=== PATIENT | male | born 1970 | race African-American/Black ===

== ENCOUNTER 2021-11-11 12:32 | Emergency (ER) | payer MEDICAID ==
[~2021-11-11] VITALS: Ht 182.9 cm; Wt 80.0 kg
[2021-11-11] MEDS ORDERED: TETRACAINE 0.5% OPHTH DROPS 4ML LEFTEYE ONE (18:45)
[2021-11-11] MEDS ORDERED: FLUORESCEIN SODIUM 1MG/STRIP LEFTEYE ONE (18:45)
[2021-11-11] MEDS ORDERED: LIDOCAINE/PRILOCAINE CREAM 5 GM TUBE TOP ONE (19:00)
[2021-11-11] MEDS ORDERED: TETANUS, DIPHTHERIA, PERTUSSIS VAC/PF 0.5ML (>10YR OLD) IM ONE (21:15)
[2021-11-11 21:44] VITALS: BP 126/69
== END 2021-11-11 21:46 | disposition home or self-care (01) ==
LOC: ER 12:32
DX: S05.32XA Ocular laceration without prolapse or loss of intraocular tissue, left eye, initial encounter (principal); X58.XXXA Exposure to other specified factors, initial encounter; Y93.89 Activity, other specified; Y92.89 Other specified places as the place of occurrence of the external cause; Y99.8 Other external cause status
CPT/HCPCS: 12011; 70480; 90471; 90715; 99284

== ENCOUNTER 2021-11-18 00:59 | Emergency (ER) | payer MEDICAID ==
[~2021-11-18] VITALS: Ht 182.9 cm; Wt 111.0 kg
[2021-11-18 01:18] VITALS: BP 128/88
== END 2021-11-18 03:23 | disposition home or self-care (01) ==
LOC: ER 00:59
DX: Z48.02 Encounter for removal of sutures (principal)
CPT/HCPCS: 99281